=== PATIENT | male | born 2000 | race Hispanic/Latino ===

== ENCOUNTER 2022-08-15 22:44 | Inpatient (IN) | payer OTHER ==
[~2022-08-15] VITALS: Ht 165.1 cm; Wt 110.2 kg
[2022-08-15] MEDS ORDERED: IOHEXOL 350 MG/ML 100ML INFUS..BTL IV ONE (23:12)
[2022-08-15] MEDS ORDERED: CLINDAMYCIN IVPB 600MG/50ML 50 ML IV SCH (23:30)
[2022-08-15] MEDS ORDERED: ACETAMINOPHEN WITH CODEINE 1 TAB TAB PO ONE (23:30)
[2022-08-15] MEDS ORDERED: ZOSYN 3.375GM +NS 50ML IV ONE (23:30)
[2022-08-15] MEDS ORDERED: INSULIN HUMULIN R 100 UNIT/ML 3ML IV ONE (23:30)
[2022-08-15] MEDS ORDERED: 0.9%NACL 1000ML 1,000 ML IV SCH (23:30)
[2022-08-15] MEDS ORDERED: VANCOMYCIN 1G VIAL IVPB ONE (23:30)
[2022-08-15 23:36] LABS: BASOPHILS % (AUTO) 0.4 % (0.0-5.0); EOSINOPHILS % (AUTO) 1.2 % (0.0-8.0); HEMATOCRIT 41.7 % (42-54); LYMPHOCYTES % (AUTO) 26.6 % (21.0-51.0); MEAN CORPUSCULAR HEMOGLOBIN 28.5 pg (27.0-33.0); MEAN CORPUSCULAR HGB CONC 33.8 g/dL (32.0-36.0); MEAN CORPUSCULAR VOLUME 84.2 fL (79-99); MONOCYTES % (AUTO) 7.1 % (3.0-13.0); NEUTROPHILS % (AUTO) 64.2 % (40.0-77.0); PLATELET COUNT (AUTO) 257 K/uL (130-400); RED BLOOD CELL COUNT(AUTO) 4.95 MIL/uL (4.50-6.20); RED CELL DISTRIBUTION WIDTH 12.6 % (11.0-15.5); WHITE BLOOD COUNT (AUTO) 12.6 K/uL (4.8-10.8)
[2022-08-15 23:53] LABS: ALBUMIN 3.9 g/dL (3.5-5.0); CREATININE 1.2 mg/dL (0.5-1.5); CRP QUANTITATIVE 58.6 mg/L (0.00-9.0); POTASSIUM 4.1 mmol/L (3.5-5.1)
[2022-08-16] MEDS ORDERED: INSULIN HUMULIN R 100 UNIT/ML 3ML SQ ONE
[2022-08-16] MEDS ORDERED: ACETAMINOPHEN 325 MG TAB PO PRN
[2022-08-16] MEDS ORDERED: ONDANSETRON 4MG INJ IV PRN
[2022-08-16] MEDS ORDERED: MORPHINE 2 MG SYG IV PRN
[2022-08-16] MEDS ORDERED: VANCOMYCIN PROTOCOL PER PHARMACY IV PRN
[2022-08-16] MEDS: LACTATED RINGERS 1000ML 1,000 ML IV SCH ×3 (00:46→16:09)
[2022-08-16] MEDS: ZOSYN 3.375GM+NS 50ML 50 ML IV SCH ×3 (05:25→20:57)
[2022-08-16 06:05] LABS: BASOPHILS % (AUTO) 0.3 % (0.0-5.0); EOSINOPHILS % (AUTO) 1.2 % (0.0-8.0); HEMATOCRIT 39.6 % (42-54); LYMPHOCYTES % (AUTO) 23.2 % (21.0-51.0); MEAN CORPUSCULAR HEMOGLOBIN 28.4 pg (27.0-33.0); MEAN CORPUSCULAR HGB CONC 33.6 g/dL (32.0-36.0); MEAN CORPUSCULAR VOLUME 84.6 fL (79-99); MONOCYTES % (AUTO) 7.2 % (3.0-13.0); NEUTROPHILS % (AUTO) 67.7 % (40.0-77.0); PLATELET COUNT (AUTO) 234 K/uL (130-400); RED BLOOD CELL COUNT(AUTO) 4.68 MIL/uL (4.50-6.20); RED CELL DISTRIBUTION WIDTH 12.7 % (11.0-15.5); WHITE BLOOD COUNT (AUTO) 12.5 K/uL (4.8-10.8)
[2022-08-16 06:06] LABS: APPEARANCE,URINE CLEAR (CLEAR); BILIRUBIN,URINE NEGATIVE (NEGATIVE); COLOR,URINE LIGHT-YELLOW (YELLOW); GLUCOSE, URINE (UA) >=1000 mg/dL (NEGATIVE); KETONES,URINE NEGATIVE (NEGATIVE); LEUKOCYTE ESTERASE ,URINE 500 Leu/uL (NEGATIVE); NITRATE,URINE NEGATIVE (NEGATIVE); PROTEIN,URINE NEGATIVE (NEGATIVE); UROBILINOGEN,URINE 0.2 mg/dL (0.2-1.0)
[2022-08-16 06:13] LABS: INR 0.94 (0.85-1.15); PROTHROMBIN TIME 10.3 SEC (9.6-11.6)
[2022-08-16 06:14] LABS: BACTERIA,URINE FEW /HPF (None Seen); RBC,URINE 26-50 /HPF (0-1); SQUAMOUS EPITHELIAL CELL,UR RARE /HPF (0-2); WBC,URINE 51-100 /HPF (0-1)
[2022-08-16 06:15] LABS: PARTIAL THROMBOPLASTIN TIME 25.9 SEC (26.3-35.5)
[2022-08-16 06:20] LABS: HEMOGLOBIN A1C 11.5 % (4.0-6.0)
[2022-08-16 06:26] LABS: CREATININE 0.8 mg/dL (0.5-1.5); MAGNESIUM 1.9 mg/dL (1.80-2.40); PHOSPHORUS 4.6 mg/dL (2.5-4.9)
[2022-08-16] MEDS: FAMOTIDINE 20MG VIAL IV SCH ×2 (07:58→20:56)
[2022-08-16] MEDS: MORPHINE 4 MG SYG IV PRN ×2 (07:59→12:26)
[2022-08-16] MEDS: VANCOMYCIN 1.25 GM/250 ML BAG 250 ML IV SCH ×2 (09:05→20:57)
[2022-08-16] MEDS: INSULIN HUMULIN R 100 UNIT/ML 3ML SQ SCH ×3 (12:27→20:58)
[2022-08-16 16:00] VITALS: BP 112/64
[2022-08-16] MEDS ORDERED: INSULIN HUMULIN R 100 UNIT/ML 3ML SQ SCH (16:30)
[2022-08-16 19:30] VITALS: BP 118/68
[2022-08-16 22:28] VITALS: BP 112/68
[2022-08-17 03:00] VITALS: BP 107/62
[2022-08-17] MEDS: ZOSYN 3.375GM+NS 50ML 50 ML IV SCH ×3 (04:28→20:02)
[2022-08-17] MEDS: MORPHINE 4 MG SYG IV PRN ×3 (04:28→20:03)
[2022-08-17 05:16] LABS: BASOPHILS % (AUTO) 0.4 % (0.0-5.0); EOSINOPHILS % (AUTO) 1.1 % (0.0-8.0); HEMATOCRIT 43.3 % (42-54); MEAN CORPUSCULAR HGB CONC 32.3 g/dL (32.0-36.0); MEAN CORPUSCULAR VOLUME 86.6 fL (79-99); MONOCYTES % (AUTO) 6.6 % (3.0-13.0); NEUTROPHILS % (AUTO) 69.3 % (40.0-77.0); PLATELET COUNT (AUTO) 259 K/uL (130-400); RED CELL DISTRIBUTION WIDTH 12.7 % (11.0-15.5); WHITE BLOOD COUNT (AUTO) 13.1 K/uL (4.8-10.8)
[2022-08-17 05:26] LABS: CREATININE 0.7 mg/dL (0.5-1.5); POTASSIUM 3.6 mmol/L (3.5-5.1)
[2022-08-17] MEDS: INSULIN HUMULIN R 100 UNIT/ML 3ML SQ SCH ×4 (06:28→20:17)
[2022-08-17 08:00] VITALS: BP 122/64
[2022-08-17] MEDS: VANCOMYCIN 1.25 GM/250 ML BAG 250 ML IV SCH (08:44)
[2022-08-17] MEDS: FAMOTIDINE 20MG VIAL IV SCH ×2 (08:44→19:59)
[2022-08-17] MEDS ORDERED: BUPIVACAINE/EPI/PF 0.5% 30ML VIAL IJ SCH (10:30)
[2022-08-17 12:00] VITALS: BP 144/87
[2022-08-17 16:00] VITALS: BP 125/59
[2022-08-17 19:00] VITALS: BP 118/74
[2022-08-17] MEDS: LACTATED RINGERS 1000ML 1,000 ML IV SCH (20:02)
[2022-08-17] MEDS ORDERED: COMPOUND IV REFRIGERATED 1 EACH IVSOLN MISC PRN (21:00)
[2022-08-17 23:55] VITALS: BP 107/57
[2022-08-18] MEDS: VANCOMYCIN 1.75 GM/250 ML BAG 250 ML IV SCH ×3 (00:30→20:02)
[2022-08-18 04:00] VITALS: BP 115/68
[2022-08-18] MEDS: ZOSYN 3.375GM+NS 50ML 50 ML IV SCH ×3 (04:30→20:17)
[2022-08-18] MEDS: LACTATED RINGERS 1000ML 1,000 ML IV SCH ×2 (04:31→09:52)
[2022-08-18] MEDS: INSULIN HUMULIN R 100 UNIT/ML 3ML SQ SCH ×4 (06:08→20:21)
[2022-08-18 07:59] LABS: BASOPHILS % (AUTO) 0.2 % (0.0-5.0); EOSINOPHILS % (AUTO) 1.1 % (0.0-8.0); HEMATOCRIT 42.8 % (42-54); LYMPHOCYTES % (AUTO) 17.5 % (21.0-51.0); MEAN CORPUSCULAR HEMOGLOBIN 28.7 pg (27.0-33.0); MEAN CORPUSCULAR HGB CONC 33.4 g/dL (32.0-36.0); MEAN CORPUSCULAR VOLUME 85.9 fL (79-99); NEUTROPHILS % (AUTO) 73.7 % (40.0-77.0); PLATELET COUNT (AUTO) 256 K/uL (130-400); RED BLOOD CELL COUNT(AUTO) 4.98 MIL/uL (4.50-6.20); RED CELL DISTRIBUTION WIDTH 12.6 % (11.0-15.5); WHITE BLOOD COUNT (AUTO) 10.2 K/uL (4.8-10.8)
[2022-08-18] MEDS: FAMOTIDINE 20MG VIAL IV SCH ×2 (09:45→20:02)
[2022-08-18 10:23] VITALS: BP 105/63
[2022-08-18 16:00] VITALS: BP 127/72
[2022-08-18] MEDS: MORPHINE 4 MG SYG IV PRN (17:59)
[2022-08-18 19:00] VITALS: BP 116/52
[2022-08-19] VITALS: BP 101/43
[2022-08-19] MEDS: LACTATED RINGERS 1000ML 1,000 ML IV SCH (00:52)
[2022-08-19 04:00] VITALS: BP 103/64
[2022-08-19] MEDS: ZOSYN 3.375GM+NS 50ML 50 ML IV SCH (04:10)
[2022-08-19 05:32] LABS: BASOPHILS % (AUTO) 0.5 % (0.0-5.0); HEMATOCRIT 40.5 % (42-54); LYMPHOCYTES % (AUTO) 27.8 % (21.0-51.0); MEAN CORPUSCULAR HEMOGLOBIN 28.7 pg (27.0-33.0); MEAN CORPUSCULAR HGB CONC 33.3 g/dL (32.0-36.0); MEAN CORPUSCULAR VOLUME 86.2 fL (79-99); MONOCYTES % (AUTO) 8.4 % (3.0-13.0); NEUTROPHILS % (AUTO) 60.8 % (40.0-77.0); PLATELET COUNT (AUTO) 245 K/uL (130-400); RED CELL DISTRIBUTION WIDTH 12.5 % (11.0-15.5); WHITE BLOOD COUNT (AUTO) 7.7 K/uL (4.8-10.8)
[2022-08-19 05:43] LABS: CREATININE 0.8 mg/dL (0.5-1.5); CRP QUANTITATIVE 53.4 mg/L (0.00-9.0); POTASSIUM 3.8 mmol/L (3.5-5.1)
[2022-08-19] MEDS: INSULIN HUMULIN R 100 UNIT/ML 3ML SQ SCH ×2 (06:25→11:47)
[2022-08-19] MEDS ORDERED: METF-444 PO (07:51)
[2022-08-19 08:00] VITALS: BP 102/64
[2022-08-19] MEDS: VANCOMYCIN 1.75 GM/250 ML BAG 250 ML IV SCH (09:51)
[2022-08-19] MEDS: FAMOTIDINE 20MG VIAL IV SCH (09:52)
[2022-08-19] MEDS: MORPHINE 4 MG SYG IV PRN (10:18)
[2022-08-19] MEDS ORDERED: AMOX1TAB16 PO (10:33)
[2022-08-19 12:00] VITALS: BP 111/45
[2022-08-19] MEDS ORDERED: VANCOMYCIN 1.5 GM/250 ML BAG 250 ML IV SCH (14:00)
== END 2022-08-19 13:23 | disposition home or self-care (01) | DRG 603 ==
LOC: EDH 22:44 → EDHIP 22:45 → 3AH 08-16 15:12
PROVIDERS: ADMIT Hospitalist; ATTEND Hospitalist
PROC: 0Y9J0ZZ Drainage of Left Lower Leg, Open Approach (ICD-10-PCS; principal; 2022-08-17)
DX: L02.416 Cutaneous abscess of left lower limb (principal); Z68.41 Body mass index [BMI] 40.0-44.9, adult; Z20.822 Contact with and (suspected) exposure to COVID-19; E11.65 Type 2 diabetes mellitus with hyperglycemia; E66.01 Morbid (severe) obesity due to excess calories; Z79.84 Long term (current) use of oral hypoglycemic drugs; Z91.199 Patient's noncompliance with other medical treatment and regimen due to unspecified reason
CPT/HCPCS: 36415; 73701; 76882; 80048; 80053; 80202; 81001; 82948; 83036; 83605; 83735; 84100; 84145; 84484; 85025; 85610; 85730; 86140; 86850; 86900; 86901; 87040; 87070; 87076; 87077; 87088; 87186; 87635; 93005; G0378; J1815; J2270; J2543; J3490; J7030; J7120; Q9967